=== PATIENT | male | born 2000 | race Caucasian/White ===

== ENCOUNTER 2019-05-02 21:20 | Emergency (ER) | payer BC ==
[2019-05-02] MEDS ORDERED: NS 0.9% 1000 ML** 1,000 ML IV ONE (21:48)
[2019-05-02 22:02] VITALS: BP 124/71
--- NOTE | 2019-05-02 22:04 | ED ---
Respiratory - HPI Summary HPI Summary: Patient is 18 year old , who present today to the urgent care with chest pain and shortness or breath x 3 days. He is today here with his parents, they are from [place] and here for vacation. Started having chest pain and shortness of breath 3 days ago, but traveling and seen here at [facility] ER last night-had extensive workup and was diagnosed with pleurisy as per the records brought. He was given a dose of azithromycin and sent home on albuterol inhaler. He started throwing up at 8:30 in the evening but was able to keep fluids down. He took ibuprofen in the morning. He reports continued chest pain and shortness of breath and he is febrile when he arrives here.. . - History of Current Complaint Chief Complaint: UCRespiratory Stated Complaint: VOMITING Time Seen by Provider: 05/02/19 21:29 Hx Obtained From: Patient Pain Intensity: 6 - Allergy/Home Medications Allergies/Adverse Reactions: Allergies Allergy/AdvReac Type Severity Reaction Status Date / Time No Known Allergies Allergy Verified 05/02/19 21:42 Home Medications: Home Medications Albuterol HFA INHALER* [Ventolin HFA Inhaler*] 2 puff INH Q4H PRN 05/02/19 [ History Confirmed 05/02/19] Azithromycin TAB* [Zithromax TAB (Z-ROSSY) 250 mg #6 tabs] 250 mg PO DAILY [History Confirmed 05/02/19] PMH/Surg Hx/FS Hx/Imm Hx Previously Healthy: Yes - no significant past medical history - Surgical History Surgery Procedure, Year, and Place: LEFT LEG, METAL DASHAWN Infectious Disease History: No Infectious Disease History: Denies: Traveled Outside the [place] in Last 30 Days - Family History Known Family History: Positive: Non-Contributory - Social History Alcohol Use: None Substance Use Type: Reports: None Smoking Status (MU): Current Every Day Smoker Type: eCigarettes Review of Systems Positive: Fever, Chills, Fatigue Eyes: Negative ENT: Negative Positive: Chest Pain Positive: Shortness Of Breath, Cough - minimally productive Gastrointestinal: Negative Positive: Abdominal Pain Genitourinary: Negative Musculoskeletal: Negative Skin: Negative Neurological: Negative Psychological: Normal All Other Systems Reviewed And Are Negative: No Physical Exam - Summary Physical Exam Summary: Physical Exam: Const: Appears well. No signs of apparent distress present. Alert and oriented x 3. Musculo: Walks with a normal gait. Head/Face: Atraumatic, normocephalic on inspection. Eyes: EOMI and PERRLA in both eyes. Conjunctivae clear. No discharge noted ENT: Hearing normal, Respiratory: Respirations are unlabored. Decreased air entry bilaterally, no wheezing, rhonchi or rales CVS: Regular rate and Rhythm, S1S2 normal , no murmurs identified. Extremities: Peripheral circulation is grossly normal. Pulses 2+ Abdomen : Soft non tender , nondistended , Bowel sounds present . No guarding , rebound tenderness or rigidity noted. Skin: No lesions or rash located on the upper extremities or on the lower extremities. Neuro: Cranial nerves II to XII intact, motor and sensory intact. DTR Intact bilaterally. Mood is normal. Affect is normal. Triage Information Reviewed: Yes Vital Signs On Initial Exam: Initial Vitals Temp Pulse Resp BP Pulse Ox 102.6 F 112 20 105/72 94 05/02/19 21:33 05/02/19 21:33 05/02/19 21:33 05/02/19 21:33 05/02/19 21:33 Vital Signs Reviewed: Yes Diagnostics - Vital Signs Vital Signs Temp Pulse Resp BP Pulse Ox 05/02/19 21:33 102.6 F 112 20 105/72 94 - Laboratory Lab Statement: Any lab studies that have been ordered have been reviewed, and results considered in the medical decision making process. - EKG No standard instances Cardiac Rate: Tachycardia EKG Rhythm: Sinus Rhythm - Right axis deviation ST Segment: Normal Disposition - Course Course Of Treatment: During the visit today, he has a temperature of 102.6, and desatted to 92. He was put on 2 L oxygen. He was tachycardic in 120s, and tachypneic at respiratory rate of 20. EKG was done which demonstrated sinus tachycardia without any ST elevation. He was started on IV fluids. We discussed the findings and further plan. I will prescribe the medication to the pharmacy . There is concern for sepsis. Patient needs additional testing, thus ER transfer advised and patient and family/ agrees. I called [facility], poke to Nurse Sandoval and Report called to the ER provider( ) at [facility], advised provider of the history, physical examination, and duration of illness and labs/imaging so far and the need for definitive management. He was transferred to ER via ambulance. Vitals stable at the time of discharge. We requested records from [facility] which came in after patient was discharged via ambulance. Records reviewed: Xrays: Interstitial Atypical pattern. D dimer neg. EKG: Sinus rythm , right axis deviation. Trop: neg. Diagnosed with atypical pneumonia and treated with azithromycin - Diagnoses Provider Diagnoses: Pneumonia, Sepsis Discharge ED - Sign-Out/Discharge Documenting (check all that apply): Patient Departure All imaging exams completed and their final reports reviewed: No - Discharge Plan Condition: Stable Disposition: TRANS HIGHER LVL OF CARE FAC Referrals: No Primary Care Phys,NOPCP [Primary Care Provider] - Additional Instructions: Transfer via ambulance to [facility] . - Billing Disposition and Condition Condition: STABLE Disposition: Trans Higher Lvl of Care Fac
== END 2019-05-02 22:00 | disposition short-term general hospital (02) ==
LOC: UCCORT 21:20
DX: J18.9 Pneumonia, unspecified organism (principal); A41.9 Sepsis, unspecified organism; F17.290 Nicotine dependence, other tobacco product, uncomplicated
CPT/HCPCS: 93005; 99203; G0463